=== PATIENT | male | born 2000 | race Caucasian/White ===

== ENCOUNTER 2018-09-17 11:09 | Emergency (ER) | payer OTHER ==
[2018-09-17 11:18] VITALS: BP 134/82
--- NOTE | 2018-09-17 11:43 | EDPHY ---
H & P Stated Complaint: tripped fell hit head/lac to scalp denies loc or neck pain Time Seen by Provider: 09/17/18 11:30 HPI/ROS: CHIEF COMPLAINT: Scalp laceration HISTORY OF PRESENT ILLNESS: 18-year-old male presents with a scalp laceration. Just prior to arrival, he tripped and fell backwards, striking his head on [place]. Sustained a scalp laceration. Bleeding was mild, now resolved. Denies headache, neck pain or other injuries. Tetanus is up-to-date. REVIEW OF SYSTEMS: complete 10 point ROS reviewed and is negative except for the noted elements in the HPI - Personal History Current Tetanus Diphtheria and Acellular Pertussis (TDAP): Yes - Medical/Surgical History Hx Asthma: No Hx Chronic Respiratory Disease: No Hx Diabetes: No Hx Cardiac Disease: No Hx Renal Disease: No Hx Cirrhosis: No Hx Alcoholism: No Hx HIV/AIDS: No Hx Splenectomy or Spleen Trauma: No Other PMH: l lbow shoulder surg - Social History Smoking Status: Never smoked - Physical Exam Exam: General Appearance: Alert, pleasant Head: Scalp laceration Eyes: No conjunctival erythema, PERRLA, EOMI ENT, Mouth: no oral trauma, no bony tenderness Neck: Nontender, range of motion without pain Respiratory: No chest wall tenderness, lungs clear bilaterally Cardiovascular: Regular rate and rhythm Abdomen: Abdomen is soft and nontender Skin: no abrasions Back: No midline T/L/S tenderness Extremities: Normal inspection Neurological: A&Ox3, normal motor function, normal sensory exam, cranial nerves intact, normal gait Psychiatric: Mood and affect normal Constitutional: Initial Vital Signs Temperature (C) 36.3 C 09/17/18 11:17 Heart Rate 94 09/17/18 11:17 Respiratory Rate 17 09/17/18 11:17 Blood Pressure 134/82 H 09/17/18 11:17 O2 Sat (%) 98 09/17/18 11:17 O2 Delivery Mode Room Air Allergies/Adverse Reactions: Penicillins Allergy (Verified 09/17/18 11:14) Home Medications: Medication Instructions Recorded Accutane 09/17/18 Medical Decision Making Procedures: Procedure: Laceration repair. The 1.5cm laceration on the location was anesthetized using lidocaine. The wound was irrigated, draped and explored to its base with a gloved finger. There were no deep structures involved. No foreign body palpable. The wound was repaired with josh. The wound repair was simple. ED Course/Re-evaluation: This pt presents after a CHI with a scalp laceration. No PÉREZ and neuro exam normal. Neuroimaging not indicated. Lac stapled by me. Warning signs discussed. Departure - Departure Disposition: Home, Routine, Self-Care Clinical Impression: Scalp laceration Qualifiers: Encounter type: initial encounter Qualified Code(s): S01.01XA - Laceration without foreign body of scalp, initial encounter Condition: Good Instructions: Laceration (ED), Staple Care (ED) Additional Instructions: Return in 7 days for for staple removal. Referrals: Shreya Rolle MD [Medical Doctor] - As per Instructions
== END 2018-09-17 12:09 | disposition home or self-care (01) ==
PROC: 0HQ0XZZ Repair Scalp Skin, External Approach (ICD-10-PCS; principal; 2018-09-17)
DX: S01.01XA Laceration without foreign body of scalp, initial encounter (principal); W01.198A Fall on same level from slipping, tripping and stumbling with subsequent striking against other object, initial encounter